=== PATIENT | female | born 1990 | race Caucasian/White ===

== ENCOUNTER 2018-05-01 07:13 | Inpatient (IN) | payer OTHER ==
[~2018-05-01] VITALS: Ht 157.5 cm; Wt 78.0 kg
[2018-05-01] MEDS ORDERED: PRENATAL TABLE1 EAC1 PO (07:19)
[2018-05-01] MEDS ORDERED: ZOFRAN4 MG PO (07:19)
[2018-05-01] MEDS ORDERED: VALTREX1000 MG PO (07:20)
== END 2018-05-03 19:05 | DRG 807 ==
LOC: OBS/DEL 07:13 → OB/GYN 09:17 → LDR 09:17 → OB/GYN 17:51
PROVIDERS: ADMIT Specialist
PROC: 10E0XZZ Delivery of Products of Conception, External Approach (ICD-10-PCS; principal; 2018-05-01)
PROC: 4A1HXCZ Monitoring of Products of Conception, Cardiac Rate, External Approach (ICD-10-PCS; 2018-05-01)
PROC: 4A033R1 Measurement of Arterial Saturation, Peripheral, Percutaneous Approach (ICD-10-PCS; 2018-05-01)
DX: O60.14X0 Preterm labor third trimester with preterm delivery third trimester, not applicable or unspecified (principal); O42.013 Preterm premature rupture of membranes, onset of labor within 24 hours of rupture, third trimester; O24.410 Gestational diabetes mellitus in pregnancy, diet controlled; Z22.330 Carrier of Group B streptococcus; Z3A.36 36 weeks gestation of pregnancy; Z37.0 Single live birth

== ENCOUNTER 2021-06-29 09:15 | Inpatient (IN) | payer OTHER ==
[~2021-06-29] VITALS: Ht 157.5 cm; Wt 80.7 kg
[~2021-06-29 09:15] MED LIST: PRENATAL TABLE1 EAC1 PO; VALTREX1000 MG PO; ZOFRAN4 MG PO
== END 2021-07-01 14:44 | disposition home or self-care (01) | DRG 807 ==
LOC: LDR 09:15 → OB/GYN 09:15
PROVIDERS: ADMIT Specialist; ATTEND Specialist
PROC: 10E0XZZ Delivery of Products of Conception, External Approach (ICD-10-PCS; principal; 2021-06-29)
PROC: 4A1HXCZ Monitoring of Products of Conception, Cardiac Rate, External Approach (ICD-10-PCS; 2021-06-29)
DX: O80 Encounter for full-term uncomplicated delivery (principal); Z37.0 Single live birth; Z3A.38 38 weeks gestation of pregnancy; Z20.822 Contact with and (suspected) exposure to COVID-19